=== PATIENT | male | born 1945 | race Caucasian/White ===

== ENCOUNTER → 2017-01-22 | Outpatient (CLI) | payer OTHER ==
[~2017-01-22] MED LIST: ASPIRIN81 MG PO; COLACE PO; DIAZEPAM PO; DULERA 200 MCG/13 GM INH; DUONEB 2.5-0.5 M3 ML NEB; FLOMAX0.4 M1 PO; GABAPENTIN300 MG PO; HYDROCODON-ACE1 EAC7 PO; LIPITOR40 MG PO; LISINOPRIL; LOSARTAN-HCTZ1 EAC1 PO; MILK OF MAGNESIA PO; MOBIC15 MG PO; MULTI VITAMIN1 EACH PO; NEBULIZER MACHINE; NERVE PILL; PATIENT'S PHARMACY; PLETAL100 M1; PLETAL100 M1 PO; PLETAL100 MG DOB; PREDNISONE PO; PROAIR RESPICL90 MCG INH; PROSTATE MED; SYMBICORT INH; VICODIN 5/1 TAB 5/50 PO; VITAMIN B-1100 M1 PO
--- NOTE | ~2017-01-22 | US135 ---
[facility] A Service of [facility] & [facility] RADIOLOGY TEXT RESULTS PATIENT: GOSIA READ LOCATION: CNIV : 47 UNIT #: [id number] AGE: [address]: Jin Rowland MD SEX: M ORDER DR: [id number] [facility] [address] [place], [place] [address] [id number] O MR#: [id number] Acc #: [id number] NAME: GOSIA READ : 1945 SEX: M STUDY DATE/TIME: 01/22/2017 10:45 UNIT: CNIV ROOM: STUDY DESCRIPTION: US U/L Ext Art Study Comp Prabhakar Attending Physician: Jin Rowland M.D. Referring Physician: Jin Rowland M.D. Ordering Physician: Jin Rowland M.D. Primary Care Physician: Volodymyr Álvarez M.D. MEDICAL IMAGING REPORT This report is preliminary unless electronic signature is present EXAM ABIs with segmental pressures HISTORY Bilateral claudication with numbness and tingling FINDINGS The right brachial artery pressure is 170. The right upper thigh pressure is 182, lower thigh 188, calf 182. The right dorsalis pedis pressure is 169 with an ankle brachial index of 0.98. The right posterior tibial pressure is 184 with an ankle brachial index of 1.07. The right digital pressure is 108, with a toe index of 0.63. The left brachial artery pressure is 172. The left upper thigh pressure is 176, lower thigh 153 and calf 144. The left dorsalis pedis pressure is 119 with an ankle brachial index of 0.69. The left posterior tibial artery pressure is 138, with an ankle to brachial index of 0.80. The left digital pressure is 68 with a toe index of 0.40. The right posterior tibial and dorsalis pedis wave forms are biphasic. The left posterior tibial and dorsalis pedis wave forms are biphasic, though blunted in comparison to the right. Segmental wave forms appear irregular bilaterally. The left calf wave forms and ankle wave forms are blunted in comparison to the right, and ipsilaterally. IMPRESSION 1. The right SANDRO is 1.07, with no evidence of arterial insufficiency. 2. The left SANDRO is 0.80, consistent with mild to moderate arterial insufficiency. Pulse volume recordings suggest femoral popliteal STS. [facility] A Service of [facility] RADIOLOGY TEXT RESULTS PATIENT: GOSIA READ LOCATION: IV : 46 UNIT #: [id number] AGE: [address]: Jin Rowland MD SEX: M ORDER DR: disease. Dictated by... Leonides Morales M.D. THIS IS AN ELECTRONICALLY VERIFIED REPORT Leonides Morales M.D. at 01/26/2017 11:45 AM AC/to TD: 01/22/2017 17:50 JOB #: [id number] MEDICAL IMAGING REPORT COPY
== END | disposition home or self-care (01) ==
LOC: CNIV 10:32
DX: I73.9 Peripheral vascular disease, unspecified (principal)
CPT/HCPCS: 93923

== ENCOUNTER 2017-05-09 05:51 | Emergency (ER) | payer OTHER ==
--- NOTE | ~2017-05-09 | CR230 ---
[facility] A Service of [facility] RADIOLOGY TEXT RESULTS PATIENT: GOSIA READ LOCATION: SED : 46 UNIT #: [id number] AGE: [address]: Mohan Schwarz MD SEX: M ORDER DR: [id number] [place] [id number] MR#: [id number] Acc #: [id number] NAME: GOSIA READ : 1945 SEX: M STUDY DATE/TIME: 05/09/2017 6:24 UNIT: SED ROOM: STUDY DESCRIPTION: CR Shoulder Min 2 View Rt Attending Physician: Mohan Schwarz M.D. Ordering Physician: Mohan Schwarz M.D. Primary Care Physician: Volodymyr Álvarez M.D. MEDICAL IMAGING REPORT This report is preliminary unless electronic signature is present. EXAM Right shoulder, 05/09/2017. INDICATIONS Shoulder pain on the right. "Out of socket" according to the patient. Symptoms began 3 weeks ago. The patient tried to catch himself after slipping while painting a bathroom. TECHNIQUE Three views of the right shoulder. COMPARISON No comparisons FINDINGS There is degenerative change of the glenohumeral and AC joints. No acute fracture. No shoulder separation or dislocation. Nonspecific calcification inferior to the bony glenoid. There are carotid artery calcifications on the right which are risk factor for stroke. IMPRESSION 1. Degenerative change but no acute fracture or shoulder dislocation. Dictated by... Casey Willis M.D. THIS IS AN ELECTRONICALLY VERIFIED REPORT Casey Willis M.D. at 05/10/2017 8:43 AM Maurizio TD: 05/09/2017 18:28 JOB #: [id number] [facility] A Service of [facility] RADIOLOGY TEXT RESULTS PATIENT: GOSIA READ LOCATION: SED : 46 UNIT #: [id number] AGE: [address]: Mohan Schwarz MD SEX: M ORDER DR: MEDICAL IMAGING REPORT Page 1 of 1
[~2017-05-09 05:51] MED LIST changes: -DULERA 200 MCG/13 GM INH; -GABAPENTIN300 MG PO; -PATIENT'S PHARMACY; -PLETAL100 M1 PO; -PROAIR RESPICL90 MCG INH; -SYMBICORT INH
[2017-05-09] MEDS ORDERED: DIAZEPAM PO (06:00)
[2017-05-15] MEDS ORDERED: DULERA 200 MCG/13 GM INH (17:23)
[2017-05-15] MEDS ORDERED: PATIENT'S PHARMACY (17:23)
[2017-05-15] MEDS ORDERED: SYMBICORT INH (17:23)
[2017-05-15] MEDS ORDERED: PROAIR RESPICL90 MCG INH (17:24)
[2017-05-15] MEDS ORDERED: FLOMAX0.4 M1 PO (17:24)
[2017-05-15] MEDS ORDERED: DIAZEPAM PO (17:24)
[2017-05-15] MEDS ORDERED: GABAPENTIN300 MG PO (17:24)
[2017-05-15] MEDS ORDERED: HYDROCODON-ACE1 EAC7 PO (17:24)
[2017-05-15] MEDS ORDERED: PLETAL100 M1 PO (17:25)
[2017-05-15] MEDS ORDERED: MOBIC15 MG PO (17:25)
== END 2017-05-09 07:00 | disposition home or self-care (01) ==
LOC: SED 05:51
DX: S46.911A Strain of unspecified muscle, fascia and tendon at shoulder and upper arm level, right arm, initial encounter (principal); J44.9 Chronic obstructive pulmonary disease, unspecified; I73.9 Peripheral vascular disease, unspecified; Z86.718 Personal history of other venous thrombosis and embolism; W01.0XXA Fall on same level from slipping, tripping and stumbling without subsequent striking against object, initial encounter; Y92.9 Unspecified place or not applicable
CPT/HCPCS: 73030; 99283

== ENCOUNTER → 2017-05-14 | Outpatient (CLI) | payer OTHER ==
[~2017-05-14] MED LIST changes: +DULERA 200 MCG/13 GM INH; +GABAPENTIN300 MG PO; +PATIENT'S PHARMACY; +PLETAL100 M1 PO; +PROAIR RESPICL90 MCG INH; +SYMBICORT INH
[2017-05-14 11:43] LABS: HEMOGLOBIN 12.2 gm/dL (13.0-16.0); MEAN CELL VOLUME 97.3 FL (83-96); MEAN CORPUSCULAR HEMOGLOBIN 32.1 PG (28-34); MEAN PLATELET VOLUME 7.2 FL (6.5-11.5); RED BLOOD COUNT 3.81 X10e (3.90-5.60); RED CELL DISTRIBUTION WIDTH 14.4 % (11.0-15.5); WHITE BLOOD COUNT 12.7 X10e3 (4.0-10.5)
== END | disposition home or self-care (01) ==
LOC: CLAB 11:13
PROVIDERS: Physician Assistant
DX: M25.511 Pain in right shoulder (principal)
CPT/HCPCS: 36415; 85027; 85652; 86140

== ENCOUNTER 2017-06-05 13:27 | Inpatient (IN) | payer OTHER | END 2017-06-07 18:28 | disposition EXP | DRG 189 | LOC: C2A 13:27 | DX: J96.21 Acute and chronic respiratory failure with hypoxia (principal); I10 Essential (primary) hypertension; Z51.5 Encounter for palliative care; I73.9 Peripheral vascular disease, unspecified | CPT/HCPCS: J1170; J2060; J2270 ==